=== PATIENT | female | born 1955 | race Caucasian/White ===

== ENCOUNTER 2024-07-26 15:29 | Emergency (ER) | payer MEDICARE, BC, SELFPAY ==
[2024-07-26 16:09] VITALS: BP 167/92; PULSE 81; RESP 20; TEMP 37.1; O2SAT 96; BMI 28.7
--- NOTE | 2024-07-26 16:21 | XR_ITS ---
Examination: PA lateral chest 2 views TECHNIQUE: Upright PA lateral chest 2 views Exam date and time: 19/01/2024 6 hours Comparison January 22, 2021 INDICATIONS: Chest pain coughing beginning 3 weeks ago. FINDINGS: Suspicious for early pneumonia left base Normal heart size The osseous structures are intact IMPRESSION: Suspicious for early left base pneumonia
--- NOTE | 2024-07-26 16:21 | EKG_ITS ---
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
--- NOTE | 2024-07-26 16:22 | PD.EDRME ---
Rapid Medical Screening Exam RME Arrival date/time: 07/26/24 15:29 69-year-old female with past medical history everyday smoker cardiac stent presents to the emergency department complaining of shortness of breath and cough has been ongoing for several days. Chief Complaint: Flu Like Symptoms Time Seen by Provider: 07/26/24 15:46 Vital signs: Vital Signs Temperature 98.8 F 07/26/24 16:09 Pulse Rate 81 07/26/24 16:09 Respiratory Rate 20 07/26/24 16:09 Blood Pressure 167/92 H 07/26/24 16:09 Pulse Oximetry (%) 96 07/26/24 16:09 Oxygen Delivery Method Room Air 07/26/24 16:09 Vital signs reviewed by provider: Yes
[2024-07-26 17:23] LABS: Basophils # (Auto) 0.1 Thou/mm3 (0.0-0.2); Basophils % (Auto) 1 % (0-2.5); Eosinophils # (Auto) 0.4 Thou/mm3 (0.0-0.5); Eosinophils % (Auto) 4 % (0-10); Hematocrit 42.6 % (36.0-46.0); Hemoglobin 14.4 g/dL (12.0-16.0); Immature Granulocytes % (Auto) 1 % (0-0); Immature Granulocytes Auto 0.07 Thou/mm3 (0.00-0.00); Lymphocytes # (Auto) 1.6 Thou/mm3 (1.0-4.8); Lymphocytes % (Auto) 17 % (10-50); Mean Corpuscular HGB Conc 33.8 g/dl (31.0-37.0); Mean Corpuscular Hemoglobin 30.6 pg (25.0-35.0); Mean Corpuscular Volume 90 fL (80-100); Monocytes # (Auto) 1.4 Thou/mm3 (0.0-0.8); Monocytes % (Auto) 15 % (0-12); Neutrophils % (Auto) 62 % (37-80); Nucleated Red Blood Cell % 0 /100 WBC (0); Platelet Count 283 Thou/mm3 (140-440); RDW Standard Deviation 40.9 fL (36.4-46.3); Red Blood Count 4.71 Miln/mm3 (4.00-5.20); White Blood Count 9.6 Thou/mm3 (3.6-11.0)
[2024-07-26 17:39] LABS: Alanine Aminotransferase 16 U/L (10-49); Albumin, Serum 4.8 gm/dL (3.4-4.8); Albumin/Globulin Ratio 1.7 (1.2-2.2); Alkaline Phosphatase 105 U/L (46-116); Anion Gap 9 (7-16); Aspartate Amino Transferase 30 U/L (0-34); BUN/Creatinine Ratio 9 Ratio (12-20); Bilirubin,Total 0.4 mg/dL (0.3-1.2); Blood Urea Nitrogen 12 mg/dL (9-23); Calcium 10.4 mg/dL (8.3-10.6); Calcium (Corrected) 10.4 mg/dL (8.5-10.1); Carbon Dioxide 27.6 mMol/L (20.0-31.0); Chloride 99 mMol/L (98-107); Creatinine (Component) 1.4 mg/dL (0.6-1.3); Estimated Creatinine Clearance 41.8 mL/min (>60); Globulin 2.8 gm/dL (2.3-3.5); Glucose 92 mg/dL (74-106); Osmolality,Calculated 271 (275-295); Potassium 3.7 mMol/L (3.4-5.1); Sodium 136 mMol/L (136-145); Total Protein 7.6 gm/dL (5.7-8.2); Troponin I < 0.020 ng/mL (0.0-0.045); eGFR 41 See Note
--- NOTE | 2024-07-26 19:00 | PD.EDURI ---
Upper Respiratory Inf. RME/HPI General Chief Complaint: Flu Like Symptoms Stated Complaint: can't quit coughing Time Seen by Provider: 07/26/24 15:46 Arrival date/time: 07/26/24 15:29 69 year old female with c/o of cough for 1 week. pt report was exposed to sick contact last week. pt report shortness of breath. SEVERITY: Symptoms are described as being severe with limitations on activities of daily living CONTEXT: The patient is unable to identify any inciting events. DURATION/TIMING: The symptoms started approximately 7 days ago and have been constant since and have been progressive getting worse. ASSOCIATED SYMPTOMS: The patient is unable to identify any other associated symptoms. MODIFYING FACTORS: The patient is unable to identify any alleviating or aggravating symptoms. PERTINENT ROS: no fevers, no pleuritic pain, no ripping or tearing sensations, denies any lower extremity edema and no unilateral swelling, no chest pain no nausea,vomiting, diarrhea, no dizziness/headache no rash no loc/syncope episode no abd/back pain no dsyuria,urgency,frequency REVIEW OF SYSTEMS: See History of Present Illness - with the exception of those mentioned in the history of present illness, all other systems reviewed and reported as negative GENERAL: In general the patient is awake, interactive, in an emergency department gurney. HEAD/EYES/EARS/NOSE/THROAT: normo-cephalic, atraumatic, mucus membranes are moist, anicteric, palpebral conjunctiva is pink, trachea is midline. CARDIOVASCULAR: regular rate and regular rhythm, no murmurs, heart sounds are not distant, strong pulses in all four extremities that are equal and symmetric bilateral upper and lower extremities, normal capillary refill. CHEST/PULMONARY: normal chest rise and fall, good air movement, + wheezes, + cough noted. normal inspiratory to expiratory ratios without evidence of respiratory distress. NECK: No midline/Paraspinal tenderness, no step off ROM/Strenght intact No Kernig and bruzinski sign. No trauma ABDOMEN: soft, not tender, no masses appreciated BACK: normal range of motion without pain. NEUROLOGICAL: cranio-facial features are symmetric, moves all four extremities equally without obvious limitations or weakness. EXTREMITY: no tenderness to palpation over the long bones or large joints of the bilateral upper and lower extremities, no joint swelling, no joint erythema, no signs of trauma, no unilateral leg swelling and no peripheral edema. SKIN: warm, dry, well-perfused, no jaundice, no rash, no telangiectasias or petechia. PSYCH: calm, cooperative, no evidence of psychosis or agitation RME / HPI RME / HPI Narrative: 07/26/24 15:29 69-year-old female with past medical history everyday smoker cardiac stent presents to the emergency department complaining of shortness of breath and cough has been ongoing for several days. Related Data Home Medications ?Medication ?Instructions ?Recorded ?Confirmed alprazolam 0.5 mg tablet 0.5 mg PO QDAY 10/25/20 10/25/20 celecoxib 200 mg capsule (Celebrex) 200 mg PO QDAY 10/25/20 10/25/20 citalopram 40 mg tablet (Celexa) 20 mg PO QDAY 10/25/20 10/25/20 isosorbide mononitrate 60 mg 60 mg PO QAM 10/25/20 10/25/20 tablet,extended release 24 hr lisinopril 20 mg tablet 20 mg PO QDAY 10/25/20 10/25/20 pravastatin 20 mg tablet 20 mg PO QDAY 10/25/20 10/25/20 pregabalin 200 mg capsule (Lyrica) 200 mg PO QDAY 10/25/20 10/25/20 trazodone 150 mg tablet 150 mg PO QDAY 10/25/20 10/25/20 Previous Rx's ?Medication ?Instructions ?Recorded diphenhydramine HCl 25 mg capsule 25 mg PO Q8H PRN allergic symptoms 03/08/21 (Benadryl) #30 caps azithromycin 500 mg tablet 500 mg PO QDAY 4 days #4 tabs 07/26/24 codeine 10 mg-guaifenesin 200 mg/5 5 ml PO Q6H PRN cough #120 mL 07/26/24 mL oral liquid doxycycline hyclate 100 mg capsule 100 mg PO BID #14 caps 07/26/24 Allergies Allergy/AdvReac Type Severity Reaction Status Date / Time Sulfa (Sulfonamide Allergy Intermediate Fever Verified 07/26/24 15:30 Antibiotics) levofloxacin Allergy Mild SWELLING, Verified 07/26/24 15:30 JOINT PAIN, STOMACH ON FIRE ciprofloxacin Allergy Unknown UNKNOWN Verified 07/26/24 15:30 REACTION Quinolones Allergy Unknown Fever Verified 07/26/24 15:30 Course Course Course Narrative: review labs, ekg, cx ,covid/flu Patient presenting with cough and fever.? VS were reviewed and showed wnl? ? Lung exam noted to have wheezes and cough? ?Obtained and reviewed CXR, which showed left side pna? ?At this time, it is felt that the most likely explanation for the patient's symptoms is pneumonia.? I also considered URI, bronchitis, pneumonia, pneumothorax, PE, but this appears less likely considering the data gathered thus far.? Patient was provided first dose of antibiotics while in the ED.? ?Supportive treatment options were discussed.? Patient to follow up with PCP closely.?? Plan:? Prescribed doxy, azithromycin, codeine Advised Pt on supportive measures, including smoking cessation and avoidance of second-hand smoke, OTC acetaminophen or ibuprofen for fever and body aches, advancement of fluids as tolerated, rest, and frequent hand-washing w/ soap and water. Instructed Pt to monitor for shaking chills or T>100.5degF, persistent cough >7-10d, hemoptysis, delirium or confusion, cyanosis, and respiratory distress.? Instructed Pt to f/up w/ PCP or ETC should Sx worsen or not improve.? Quality Measures none Orders Category Date Time Status Bedside COVID-19 Antigen Test NOW Care 07/26/24 16:21 Active Bedside Influenza A&B Antigen Test NOW Care 07/26/24 16:21 Completed EKG (ED ONLY) *Do not use* NOW Care 07/26/24 16:21 Completed EKG (ED Only) Stat Exams 07/26/24 16:21 Draft XR chest 2V Stat Exams 07/26/24 16:21 Completed CBC Stat Lab 07/26/24 16:37 Completed Comprehensive Metabolic Panel Stat Lab 07/26/24 16:37 Completed Troponin I Stat Lab 07/26/24 16:37 Completed ACETAMINOPHEN w/COD 300-30 [Tylenol w/Cod #3] Med 07/26/24 18:59 Discontinued 1 tab PO X1 ONE Albuterol/Ipratr Rt Selina [Duoneb Rt Selina] Med 07/26/24 19:08 Discontinued 3 ml INH X1 ONE Azithromycin Po [Zithromax PO] Med 07/26/24 19:07 Discontinued 500 mg PO X1 ONE Doxycycline [Vibramycin] Med 07/26/24 18:59 Discontinued 100 mg PO X1 ONE guaiFENesin SYRUP [Robitussin Syrup] Med 07/26/24 18:59 Discontinued 200 mg PO X1 ONE Vital Signs Vital signs: Vital Signs Temperature 98.8 F 07/26/24 16:09 Pulse Rate 81 07/26/24 16:09 Respiratory Rate 20 07/26/24 16:09 Blood Pressure 167/92 H 07/26/24 16:09 Pulse Oximetry (%) 96 07/26/24 16:09 Oxygen Delivery Method Room Air 07/26/24 16:09 Procedures -ED EKG Interpretation #1: Date of EK07/26/24 Rate: 76 Interpretation: Reviewed by me EKG Impression: Normal sinus rhythm, No acute ST-T changes, No ectopy, No ischemic changes and Normal QRS Upper Respiratory Infection Patient data External records reviewed:: None Clinical information provided by:: patient and family Social determinants that could affect healthcare access:: none Patient has the following chronic illnesses:: HTN, hdl How is presenting disease/condition affected by chronic disease/condition?: exacerbated by Evaluation data The following diagnostics were reviewed and interpreted by me:: lab results, radiology exam(s) and EKG tracing(s) Lab and/or radiology exams considered but not ordered:: none Interpretation Summary: cbc/cmp/trop wnl cxr: + pna ekg wnl covid/flu negative Medications / Prescriptions Medications or Prescriptions considered but not ordered:: none Medication administrations:: Medication Administration History Discontinued Medications Acetaminophen/Codeine Phosphate (Acetaminophen W/Cod 300-30 Tablet) 1 tab PO X1 ONE Stop: 07/26/24 19:00 Albuterol/Ipratropium (Albuterol/Ipratropium (Duoneb) Rt Selina 3 Ml Nebu) 3 ml INH X1 ONE Stop: 07/26/24 19:09 Azithromycin (Azithromycin 250 Mg Tablet) 500 mg PO X1 ONE Stop: 07/26/24 19:08 Doxycycline Hyclate (Doxycycline 100 Mg Tablet) 100 mg PO X1 ONE Stop: 07/26/24 19:00 Guaifenesin (Guaifenesin Syrup 200 Mg/10 Ml Udc) 200 mg PO X1 ONE; Protocol Stop: 07/26/24 19:00 as state above Consultations Consultation(s) initiated? (list below): No Diagnosis Upper Respiratory Differential Diagnosis: upper respiratory infection, viral infection, bronchitis, influenza and pharyngitis (pna mi/nstemi bronchitis ) Most likely diagnosis given after review of the tests above:: as stated in mdm pna Admission Indicated Admission indicated?: not indicated Admission Request Was there a request for admission?: No Disposition Plan Disposition Plan: Discharge Discharge Attestation Discharge Attestation: The patient and all family members were given an opportunity to ask questions and understood the discharge instructions. Discharge instructions specifically effects, indications for sooner follow up or return to the emergency department, and the expected course of current diagnosis. Patient condition: Stable Discharge Plan Plan Patient Disposition: HOME (Self Care) Health Concerns: Follow with PMD as directed Take tylenol or motrin as need Return to ED if sx worsen Prescriptions/Referrals Prescriptions/Med Rec: New doxycycline hyclate 100 mg capsule 100 mg PO BID Qty: 14 0RF codeine-guaifenesin 10-200 mg/5 mL liquid 5 ml PO Q6H PRN (Reason: cough) Qty: 120 0RF azithromycin 500 mg tablet 500 mg PO QDAY 4 Days Qty: 4 0RF No Action celecoxib [Celebrex] 200 mg Capsule 200 mg PO QDAY citalopram [Celexa] 40 mg Tablet 20 mg PO QDAY lisinopril 20 mg Tablet 20 mg PO QDAY isosorbide mononitrate 60 mg Tablet Extended Release 24 Hr 60 mg PO QAM alprazolam 0.5 mg Tablet 0.5 mg PO QDAY trazodone 150 mg Tablet 150 mg PO QDAY pravastatin 20 mg Tablet 20 mg PO QDAY pregabalin [Lyrica] 200 mg Capsule 200 mg PO QDAY diphenhydramine HCl [Benadryl] 25 mg capsule 25 mg PO Q8H PRN (Reason: allergic symptoms) Qty: 30 0RF Referrals: Irasema Caldera MD [Primary Care Provider] - In 1 week Problem List Clinical Impression: Pneumonia Patient/Caregiver Discharge Instructions Education Materials: ED Pneumonia (Adult) Print Language: Mongolian Stand Alone Forms: [facility] Award Info., Patient Portal Info Letter
[2024-07-26 19:03] VITALS: BP 176/96; PULSE 77; RESP 16; TEMP 36.8; O2SAT 97
[2024-07-26] MEDS: AZITHROMYCIN 250 MG TABLET 500 MG PO (19:24)
[2024-07-26] MEDS: ACETAMINOPHEN w/COD 300-30 TABLET 1 TAB PO (19:24)
[2024-07-26] MEDS: guaiFENesin SYRUP 200 MG/10 ML UDC PO (19:25)
[2024-07-26] MEDS: DOXYCYCLINE 100 MG TABLET PO (19:25)
[2024-07-26 19:36] VITALS: PULSE 71; RESP 16; O2SAT 100
[2024-07-26] MEDS: ALBUTEROL/IPRATROPIUM (Duoneb) RT SOL 3 ML NEBU INH (19:36)
== END 2024-07-26 19:51 | disposition home or self-care (01) ==
PROVIDERS: Emergency Provider Emergency Medicine; PCP Internal Medicine
DX: J18.9 Pneumonia, unspecified organism (principal); R94.31 Abnormal electrocardiogram [ECG] [EKG]; F17.290 Nicotine dependence, other tobacco product, uncomplicated; I10 Essential (primary) hypertension
CPT/HCPCS: 36415; 71046; 80053; 84484; 85025; 87400; 87811; 93005; 94640; 99283; A9270

== ENCOUNTER → 2024-08-11 | Outpatient (CLI) | payer MEDICARE, BC, SELFPAY ==
[2024-08-11 11:10] LABS: Collection Type, Urine Clean Catch
[2024-08-11 11:34] LABS: Basophils # (Auto) 0.1 Thou/mm3 (0.0-0.2); Basophils % (Auto) 2 % (0-2.5); Eosinophils # (Auto) 0.2 Thou/mm3 (0.0-0.5); Eosinophils % (Auto) 4 % (0-10); Hematocrit 41.2 % (36.0-46.0); Hemoglobin 14.1 g/dL (12.0-16.0); Immature Granulocytes % (Auto) 0 % (0-0); Immature Granulocytes Auto 0.02 Thou/mm3 (0.00-0.00); Lymphocytes # (Auto) 1.1 Thou/mm3 (1.0-4.8); Lymphocytes % (Auto) 19 % (10-50); Mean Corpuscular HGB Conc 34.2 g/dl (31.0-37.0); Mean Corpuscular Hemoglobin 31.1 pg (25.0-35.0); Mean Corpuscular Volume 91 fL (80-100); Monocytes # (Auto) 0.7 Thou/mm3 (0.0-0.8); Monocytes % (Auto) 11 % (0-12); Neutrophils # (Auto) 3.7 Thou/mm3 (1.8-7.7); Neutrophils % (Auto) 63 % (37-80); Nucleated Red Blood Cell % 0 /100 WBC (0); Platelet Count 218 Thou/mm3 (140-440); RDW Standard Deviation 41.1 fL (36.4-46.3); Red Blood Count 4.53 Miln/mm3 (4.00-5.20); White Blood Count 5.9 Thou/mm3 (3.6-11.0)
[2024-08-11 11:45] LABS: Glucose Estimated Average 105 mg/dL (80-131); Hemoglobin A1C 5.3 % Hgb (4.8-6.0)
[2024-08-11 11:51] LABS: Amorphous Crystals,Urine Present (Absent); Bilirubin,Urine Negative (Negative); Blood,Urine Negative (Negative); Clarity,Urine Clear (Clear/Hazy); Color,Urine Lt-Yellow (Lt Yel-Yel); Glucose, Urine Negative (Negative); Ketones,Urine Negative (Negative); Leukocyte Esterase,Urine Negative (Negative); Nitrite,Urine Negative (Negative); Protein,Urine Negative (Neg - Trace); RBC,Urine 5 /hpf (0-3); Specific Gravity,Urine 1.016 (1.001-1.035); Squamous Epithelial Cell,Urine 4 /hpf (0-5); Urobilinogen,Urine Negative mg/dL (0.0-1.0); WBC,Urine < 1 /hpf (0-5)
[2024-08-11 11:57] LABS: Vitamin B12 525 pg/mL (211-911); Vitamin D 25 Hydroxy Total 81.3 ng/mL (7.3-40.2)
[2024-08-11 12:11] LABS: Alanine Aminotransferase 16 U/L (10-49); Albumin, Serum 4.6 gm/dL (3.4-4.8); Albumin/Globulin Ratio 2.1 (1.2-2.2); Alkaline Phosphatase 94 U/L (46-116); Anion Gap 8 (7-16); Aspartate Amino Transferase 24 U/L (0-34); BUN/Creatinine Ratio 10 Ratio (12-20); Bilirubin,Total 0.4 mg/dL (0.3-1.2); Blood Urea Nitrogen 14 mg/dL (9-23); Calcium 10.3 mg/dL (8.3-10.6); Calcium (Corrected) 10.3 mg/dL (8.5-10.1); Carbon Dioxide 26.9 mMol/L (20.0-31.0); Cardiac Risk Estimate 2.3 RATIO (3.7-5.6); Chloride 103 mMol/L (98-107); Cholesterol 177 mg/dL (132-200); Creatinine (Component) 1.4 mg/dL (0.6-1.3); Globulin 2.2 gm/dL (2.3-3.5); Glucose 88 mg/dL (74-106); HDL Cholesterol 77 mg/dL (40-60); LDL Cholesterol,Calculated 74 mg/dL (0-130); Osmolality,Calculated 275 (275-295); Potassium 4.5 mMol/L (3.4-5.1); Sodium 138 mMol/L (136-145); Thyroid Stimulating Hormone 0.86 uIU/mL (0.55-4.78); Total Protein 6.8 gm/dL (5.7-8.2); Triglycerides 131 mg/dL (30-150); eGFR 41 See Note
== END | disposition home or self-care (01) ==
LOC: COPL 10:18
PROVIDERS: PCP Internal Medicine; Referring Provider Internal Medicine; Visit Provider Internal Medicine
DX: Z00.00 Encounter for general adult medical examination without abnormal findings (principal); I10 Essential (primary) hypertension; E78.5 Hyperlipidemia, unspecified; R73.09 Other abnormal glucose; D51.9 Vitamin B12 deficiency anemia, unspecified; E55.9 Vitamin D deficiency, unspecified
CPT/HCPCS: 36415; 80053; 80061; 81001; 82306; 82607; 83036; 84443; 84550; 85025

== ENCOUNTER → 2024-10-06 | Outpatient (CLI) | payer MEDICARE, BC, SELFPAY ==
--- NOTE | 2024-10-06 08:55 | XR_ITS ---
Examination: Lumbar spine 3 views TECHNIQUE: Standing AP lateral coned lateral lower lumbar spine 3 views Exam date and time: October 06, 2024 0922 hours Comparison June 12, 2017 INDICATIONS: Status post lumbar fusion September 23, 2024 FINDINGS: Lumbar transpedicular fusion L2-S1 with satisfactory alignment Prominent lumbar spondylosis Advanced degenerative disc disease above the fusion, L1-L2 IMPRESSION: Transpedicular lumbar fusion L2-S1 with satisfactory alignment
== END | disposition home or self-care (01) ==
LOC: CDIM 08:47
PROVIDERS: PCP Internal Medicine; Referring Provider Orthopaedic Surgery Orthopaedic Surgery of the Spine; Visit Provider Orthopaedic Surgery Orthopaedic Surgery of the Spine
DX: M43.26 Fusion of spine, lumbar region (principal); Z47.89 Encounter for other orthopedic aftercare
CPT/HCPCS: 72100

== ENCOUNTER → 2024-11-30 | Outpatient (CLI) | payer MEDICARE, BC, SELFPAY ==
--- NOTE | 2024-11-30 15:39 | XR_ITS ---
Examination: Lumbar spine, 5 views Technique: Lumbar spine AP, lateral, coned lateral lower lumbar spine, bilateral obliques 5 views Exam date and time: November 30, 2024 1556 hours Comparison October 06, 2024 INDICATIONS: Low back pain years, postop lumbar fusion FINDINGS: Stable alignment transpedicular lumbar fusion L2-S1 with anatomic alignment Advanced degenerative disc disease above the fusion site L1-L2 No lumbar fracture Moderate lumbar spondylosis IMPRESSION: Extensive lumbar stabilization with anatomic alignment Advanced degenerative disc disease L1-L2
== END | disposition home or self-care (01) ==
LOC: SDIM 15:28
PROVIDERS: PCP Internal Medicine; Referring Provider Orthopaedic Surgery Orthopaedic Surgery of the Spine; Visit Provider Orthopaedic Surgery Orthopaedic Surgery of the Spine
DX: M51.369 Other intervertebral disc degeneration, lumbar region without mention of lumbar back pain or lower extremity pain (principal); Z47.89 Encounter for other orthopedic aftercare
CPT/HCPCS: 72110

== ENCOUNTER → 2025-02-28 | Outpatient (CLI) | payer MEDICARE, BC, SELFPAY ==
[2025-02-28 09:17] LABS: Collection Type, Urine Clean Catch
[2025-02-28 09:50] LABS: Basophils # (Auto) 0.1 Thou/mm3 (0.0-0.2); Basophils % (Auto) 2 % (0-2.5); Eosinophils # (Auto) 0.3 Thou/mm3 (0.0-0.5); Eosinophils % (Auto) 5 % (0-10); Hematocrit 42.4 % (36.0-46.0); Hemoglobin 13.8 g/dL (12.0-16.0); Immature Granulocytes % (Auto) 0 % (0-0); Immature Granulocytes Auto 0.01 Thou/mm3 (0.00-0.00); Lymphocytes # (Auto) 1.2 Thou/mm3 (1.0-4.8); Lymphocytes % (Auto) 20 % (10-50); Mean Corpuscular HGB Conc 32.5 g/dl (31.0-37.0); Mean Corpuscular Hemoglobin 29.4 pg (25.0-35.0); Mean Corpuscular Volume 90 fL (80-100); Monocytes # (Auto) 0.7 Thou/mm3 (0.0-0.8); Monocytes % (Auto) 11 % (0-12); Neutrophils # (Auto) 3.6 Thou/mm3 (1.8-7.7); Neutrophils % (Auto) 61 % (37-80); Nucleated Red Blood Cell % 0 /100 WBC (0); Platelet Count 218 Thou/mm3 (140-440); RDW Standard Deviation 48.3 fL (36.4-46.3); Red Blood Count 4.69 Miln/mm3 (4.00-5.20); White Blood Count 5.9 Thou/mm3 (3.6-11.0)
[2025-02-28 09:56] LABS: Bacteria,Urine 1+; Bilirubin,Urine Negative (Negative); Blood,Urine Negative (Negative); Clarity,Urine Clear (Clear/Hazy); Color,Urine Lt-Yellow (Lt Yel-Yel); Glucose, Urine Negative (Negative); Ketones,Urine Negative (Negative); Leukocyte Esterase,Urine Negative (Negative); Nitrite,Urine Negative (Negative); PH,Urine 6.5 (5.0-7.0); Protein,Urine Negative (Neg - Trace); RBC,Urine 2 /hpf (0-3); Specific Gravity,Urine 1.017 (1.001-1.035); Squamous Epithelial Cell,Urine 8 /hpf (0-5); Urobilinogen,Urine Negative mg/dL (0.0-1.0); WBC,Urine 2 /hpf (0-5)
[2025-02-28 09:56] LABS: Parathyroid Hormone Intact 57.5 pg/ml (18.5-88.0)
[2025-02-28 09:59] LABS: Alanine Aminotransferase 15 U/L (10-49); Albumin, Serum 4.3 gm/dL (3.4-4.8); Albumin/Globulin Ratio 1.7 (1.2-2.2); Alkaline Phosphatase 95 U/L (46-116); Anion Gap 4 (7-16); Aspartate Amino Transferase 25 U/L (0-34); BUN/Creatinine Ratio 11 Ratio (12-20); Bilirubin,Total 0.3 mg/dL (0.3-1.2); Blood Urea Nitrogen 16 mg/dL (9-23); Calcium 9.8 mg/dL (8.3-10.6); Calcium (Corrected) 9.8 mg/dL (8.5-10.1); Carbon Dioxide 29.8 mMol/L (20.0-31.0); Cardiac Risk Estimate 2.6 RATIO (3.7-5.6); Chloride 107 mMol/L (98-107); Cholesterol 177 mg/dL (132-200); Creatinine (Component) 1.4 mg/dL (0.6-1.3); Globulin 2.6 gm/dL (2.3-3.5); Glucose 95 mg/dL (74-106); HDL Cholesterol 67 mg/dL (40-60); LDL Cholesterol,Calculated 81 mg/dL (0-130); Osmolality,Calculated 282 (275-295); Potassium 4.4 mMol/L (3.4-5.1); Sodium 141 mMol/L (136-145); Total Protein 6.9 gm/dL (5.7-8.2); Triglycerides 146 mg/dL (30-150); eGFR 41 See Note
[2025-02-28 10:05] LABS: Creatinine MALB Rnd Ur 116 mg/dL (30-125); Microalbumin, Random Urine < 3 mg/L (0-300)
== END | disposition home or self-care (01) ==
LOC: COPL 08:21
PROVIDERS: PCP Internal Medicine; Referring Provider Internal Medicine; Visit Provider Internal Medicine
DX: I12.9 Hypertensive chronic kidney disease with stage 1 through stage 4 chronic kidney disease, or unspecified chronic kidney disease (principal); N18.30 Chronic kidney disease, stage 3 unspecified; E78.5 Hyperlipidemia, unspecified
CPT/HCPCS: 36415; 80053; 80061; 81001; 82043; 82570; 83970; 85025

== ENCOUNTER → 2025-04-18 | Outpatient (CLI) | payer MEDICARE, BC, SELFPAY ==
--- NOTE | 2025-04-18 15:23 | XR_ITS ---
Examination: Lumbar spine, 5 views Technique: Lumbar spine AP, lateral, coned lateral lower lumbar spine, bilateral obliques 5 views Exam date and time: April 18, 2025 1536 hours, comparison November 30, 2024 INDICATIONS: Back surgery September 2024 with persistent postop back pain. FINDINGS: Lumbar levoscoliosis 10 degrees Stable alignment transpedicular lumbar stabilization L2-S1 with diffuse advanced lumbar disc narrowing No lumbar fracture Prominent lumbar spondylosis IMPRESSION: Stable alignment transpedicular lumbar stabilization L3-S1 with diffuse advanced lumbar degenerative disc disease
== END | disposition home or self-care (01) ==
PROVIDERS: PCP Internal Medicine; Referring Provider Orthopaedic Surgery Orthopaedic Surgery of the Spine; Visit Provider Orthopaedic Surgery Orthopaedic Surgery of the Spine
DX: M51.360 Other intervertebral disc degeneration, lumbar region with discogenic back pain only (principal)
CPT/HCPCS: 72110

== ENCOUNTER → 2025-07-07 | Outpatient (CLI) | payer MEDICARE, BC, SELFPAY ==
[2025-07-07 08:49] LABS: Collection Type, Urine Clean Catch
[2025-07-07 09:09] LABS: Basophils # (Auto) 0.1 Thou/mm3 (0.0-0.2); Basophils % (Auto) 1 % (0-2.5); Eosinophils # (Auto) 0.2 Thou/mm3 (0.0-0.5); Eosinophils % (Auto) 4 % (0-10); Hematocrit 41.2 % (36.0-46.0); Hemoglobin 14.1 g/dL (12.0-16.0); Immature Granulocytes Auto 0.02 Thou/mm3 (0.00-0.00); Lymphocytes # (Auto) 1.0 Thou/mm3 (1.0-4.8); Lymphocytes % (Auto) 19 % (10-50); Mean Corpuscular HGB Conc 34.2 g/dl (31.0-37.0); Mean Corpuscular Hemoglobin 30.5 pg (25.0-35.0); Mean Corpuscular Volume 89 fL (80-100); Monocytes # (Auto) 0.7 Thou/mm3 (0.0-0.8); Monocytes % (Auto) 13 % (0-12); Neutrophils # (Auto) 3.3 Thou/mm3 (1.8-7.7); Neutrophils % (Auto) 63 % (37-80); Nucleated Red Blood Cell # 0.00 Thou/mm3 (0.00-0.00); Nucleated Red Blood Cell % 0 /100 WBC (0); Platelet Count 217 Thou/mm3 (140-440); RDW Standard Deviation 44.1 fL (36.4-46.3); Red Blood Count 4.62 Miln/mm3 (4.00-5.20); White Blood Count 5.2 Thou/mm3 (3.6-11.0)
[2025-07-07 09:15] LABS: Bacteria,Urine Rare; Bilirubin,Urine Negative (Negative); Blood,Urine Negative (Negative); Clarity,Urine Clear (Clear/Hazy); Color,Urine Yellow (Lt Yel-Yel); Glucose, Urine Negative (Negative); Ketones,Urine Trace (Negative); Leukocyte Esterase,Urine Negative (Negative); Nitrite,Urine Negative (Negative); PH,Urine 6.0 (5.0-7.0); Protein,Urine Negative (Neg - Trace); RBC,Urine 8 /hpf (0-3); Specific Gravity,Urine 1.011 (1.001-1.035); Squamous Epithelial Cell,Urine 1 /hpf (0-5); Urobilinogen,Urine Negative mg/dL (0.0-1.0); WBC,Urine 2 /hpf (0-5)
[2025-07-07 09:28] LABS: Parathyroid Hormone Intact 75.0 pg/ml (18.5-88.0)
[2025-07-07 09:29] LABS: Alanine Aminotransferase 11 U/L (10-49); Albumin, Serum 4.6 gm/dL (3.4-4.8); Albumin/Globulin Ratio 2.2 (1.2-2.2); Alkaline Phosphatase 92 U/L (46-116); Anion Gap 7 (7-16); Aspartate Amino Transferase 22 U/L (0-34); BUN/Creatinine Ratio 9 Ratio (12-20); Bilirubin,Total 0.5 mg/dL (0.3-1.2); Blood Urea Nitrogen 10 mg/dL (9-23); Calcium 9.7 mg/dL (8.3-10.6); Calcium (Corrected) 9.7 mg/dL (8.5-10.1); Carbon Dioxide 25.5 mMol/L (20.0-31.0); Cardiac Risk Estimate 2.4 RATIO (3.7-5.6); Chloride 105 mMol/L (98-107); Cholesterol 148 mg/dL (132-200); Creatinine (Component) 1.1 mg/dL (0.6-1.3); Globulin 2.1 gm/dL (2.3-3.5); Glucose 88 mg/dL (74-106); HDL Cholesterol 62 mg/dL (40-60); LDL Cholesterol,Calculated 66 mg/dL (0-130); Osmolality,Calculated 271 (275-295); Potassium 4.0 mMol/L (3.4-5.1); Sodium 137 mMol/L (136-145); Thyroid Stimulating Hormone 1.25 uIU/mL (0.55-4.78); Total Protein 6.7 gm/dL (5.7-8.2); Triglycerides 98 mg/dL (30-150); eGFR 55 See Note
[2025-07-07 09:31] LABS: Creatinine MALB Rnd Ur 84 mg/dL (30-125); Microalbumin Creat Ratio 8 mg/gCrea (<30); Microalbumin, Random Urine 7 mg/L (0-300)
[2025-07-07 09:32] LABS: Follicle Stimulating Hormone 86.61 mIU/mL (See Note)
[2025-07-14 06:39] LABS: Estrogen, Total, Serum* 87 pg/mL; Luteinizing Hormone* 20.2 mIU/mL; Progesterone,LC/MS* <0.1 ng/mL
== END | disposition home or self-care (01) ==
LOC: COPL 08:06
PROVIDERS: PCP Internal Medicine; Referring Provider Internal Medicine; Visit Provider Internal Medicine
DX: I12.9 Hypertensive chronic kidney disease with stage 1 through stage 4 chronic kidney disease, or unspecified chronic kidney disease (principal); N18.30 Chronic kidney disease, stage 3 unspecified; E78.5 Hyperlipidemia, unspecified
CPT/HCPCS: 36415; 80053; 80061; 81001; 82043; 82570; 82672; 83001; 83002; 83970; 84144; 84443; 85025

== ENCOUNTER 2025-07-09 16:17 | Emergency (ER) | payer MEDICARE, BC, SELFPAY ==
--- NOTE | 2025-07-09 16:53 | PD.EDFALL ---
ED Fall Injury RME/HPI General Chief Complaint: Fall Stated Complaint: FALL Time Seen by Provider: 07/09/25 16:25 Arrival date/time: 07/09/25 16:17 70-year-old female patient came in for evaluation regarding ground-level fall. Patient was walking, stepped on a rock and fell hitting it forehead to the ground first, patient also complained of right shoulder pain described as dull ache, severity moderate also complained of right forearm pain with skin tear. Also complained of left knee pain with abrasion. Able to ambulate. Patient told me that she had bilateral hip replacement, she denies any chest pain back pain hip pain or abdominal pain. Her tetanus vaccination is up-to-date. Related Data Home Medications ?Medication ?Instructions ?Recorded ?Confirmed alprazolam 0.5 mg tablet 0.5 mg PO QDAY 10/25/20 10/25/20 celecoxib 200 mg capsule (Celebrex) 200 mg PO QDAY 10/25/20 10/25/20 citalopram 40 mg tablet (Celexa) 20 mg PO QDAY 10/25/20 10/25/20 isosorbide mononitrate 60 mg 60 mg PO QAM 10/25/20 10/25/20 tablet,extended release 24 hr lisinopril 20 mg tablet 20 mg PO QDAY 10/25/20 10/25/20 pravastatin 20 mg tablet 20 mg PO QDAY 10/25/20 10/25/20 pregabalin 200 mg capsule (Lyrica) 200 mg PO QDAY 10/25/20 10/25/20 trazodone 150 mg tablet 150 mg PO QDAY 10/25/20 10/25/20 Previous Rx's ?Medication ?Instructions ?Recorded diphenhydramine HCl 25 mg capsule 25 mg PO Q8H PRN allergic symptoms 03/08/21 (Benadryl) #30 caps codeine 10 mg-guaifenesin 200 mg/5 5 ml PO Q6H PRN cough #120 mL 07/26/24 mL oral liquid doxycycline hyclate 100 mg capsule 100 mg PO BID #14 caps 07/26/24 Allergies Allergy/AdvReac Type Severity Reaction Status Date / Time Sulfa (Sulfonamide Allergy Intermediate Fever Verified 07/26/24 15:30 Antibiotics) levofloxacin Allergy Mild SWELLING, Verified 07/26/24 15:30 JOINT PAIN, STOMACH ON FIRE ciprofloxacin Allergy Unknown UNKNOWN Verified 07/26/24 15:30 REACTION Quinolones Allergy Unknown Fever Verified 07/26/24 15:30 Review of Systems Review of Systems Narrative Review of Systems: Review of system reviewed and within normal limits except mentioned in HPI ED Exam Narrative Physical exam: VITAL SIGNS: Reviewed. GENERAL APPEARANCE: Alert and interactive, follows commands, no acute distress, HEAD AND FACE: Non-traumatic. ENT: PERRL, pink conjunctivitis, eyelid no trauma, Mucous membrane moist. NECK: Supple, nontender, no nuchal rigidity. CHEST: No tenderness, no crepitus, no paradoxical movement, no retractions. LUNGS: Clear, well ventilated, symmetric, no rales, no wheezing, no ronchi, no stridor, good breath sounds bilaterally. HEART: Regular rate, regular rhythm, no murmur, no gallops. ABDOMEN: Soft, positive bowel sounds, nondistended, no guarding, nontender, no rebound, no masses, RECTAL: Deferred. GENITAL: Deferred. NEUROLOGICAL: Gross motor function intact sensory function intact, Appropriate for age. MUSCULOSKELETAL: low back nontender, full range of motion. EXTREMITIES: Right arm tenderness, right forearm tenderness, skin tear noted on the right forearm, abrasion noted to the left knee, limitation range of motion. SKIN: Color pink, dry, no rash, no lacerations, no abrasions, no contusions. LYMPHATICS: Deferred. Course Quality Measures none Orders Category Date Time Status CT cervical spine wo con Stat Exams 07/09/25 17:[address] head/brain wo con Stat Exams 07/09/25 17:00 Completed XR forearm RT 2V Stat Exams 07/09/25 17:00 Completed XR humerus RT min 2V Stat Exams 07/09/25 17:00 Completed XR knee limited LT 2V Stat Exams 07/09/25 17:00 Completed HYDROcodone/APAP 10/325 [Lamar 10/325] Med 07/09/25 17:00 Discontinued 1 tab PO X1 ONE Vital Signs Vital signs: Vital Signs Temperature 98.1 F 07/09/25 16:54 Pulse Rate 67 07/09/25 16:54 Respiratory Rate 20 07/09/25 16:54 Blood Pressure 157/92 H 07/09/25 16:54 Pulse Oximetry (%) 95 07/09/25 16:54 Oxygen Delivery Method Room Air 07/09/25 16:54 Fall [facility] Narrative [facility] Narrative:: 70-year-old female patient came in for evaluation regarding ground-level fall. Patient was walking, stepped on a rock and fell hitting it forehead to the ground first, patient also complained of right shoulder pain described as dull ache, severity moderate also complained of right forearm pain with skin tear. Also complained of left knee pain with abrasion. Able to ambulate. Patient told me that she had bilateral hip replacement, she denies any chest pain back pain hip pain or abdominal pain. Her tetanus vaccination is up-to-date. CT scan of the head, CT scan of the cervical spine, x-ray of the humerus, forearm, knee, all came back unremarkable. Results discussed with the family. Wound cleansed with NS, Steri-Strip applied, and sterile dressing applied. Patient tolerated pressure well stable for charged home Patient data External records reviewed:: None Clinical information provided by:: patient Social determinants that could affect healthcare access:: none Patient has the following chronic illnesses:: Hypertension How is presenting disease/condition affected by chronic disease/condition?: uneffected by Evaluation data The following diagnostics were reviewed and interpreted by me:: radiology exam(s) Lab and/or radiology exams considered but not ordered:: None Interpretation Summary: See results [facility] Medications / Prescriptions Medications or Prescriptions considered but not ordered:: None Medication administrations:: Medication Administration History Discontinued Medications Hydrocodone Bitart/Acetaminophen (Hydrocodone/Apap 10/325 Tab) 1 tab PO X1 ONE Stop: 07/09/25 17:01 Last Admin: 07/09/25 17:44 Dose: 1 tab Documented By: MYKEL a[employer]checo Consultations Consultation(s) initiated? (list below): No Diagnosis Fall Differential Diagnosis: concussion without loss of consciousness and other (Skin tear, contusion, status post fall) Most likely diagnosis given after review of the tests above:: Skin tear, contusion, status post fall Admission Indicated Admission indicated?: not indicated Admission Request Was there a request for admission?: No Disposition Plan Disposition Plan: Discharge Discharge Attestation Discharge Attestation: The patient and all family members were given an opportunity to ask questions and understood the discharge instructions. Discharge instructions specifically effects, indications for sooner follow up or return to the emergency department, and the expected course of current diagnosis. Patient condition: Stable Discharge Plan Plan Patient Disposition: HOME (Self Care) Discharge Disposition comment: stable Prescriptions/Referrals Prescriptions/Med Rec: No Action celecoxib [Celebrex] 200 mg Capsule 200 mg PO QDAY citalopram [Celexa] 40 mg Tablet 20 mg PO QDAY lisinopril 20 mg Tablet 20 mg PO QDAY isosorbide mononitrate 60 mg Tablet Extended Release 24 Hr 60 mg PO QAM alprazolam 0.5 mg Tablet 0.5 mg PO QDAY trazodone 150 mg Tablet 150 mg PO QDAY pravastatin 20 mg Tablet 20 mg PO QDAY pregabalin [Lyrica] 200 mg Capsule 200 mg PO QDAY diphenhydramine HCl [Benadryl] 25 mg capsule 25 mg PO Q8H PRN (Reason: allergic symptoms) Qty: 30 0RF doxycycline hyclate 100 mg capsule 100 mg PO BID Qty: 14 0RF codeine-guaifenesin 10-200 mg/5 mL liquid 5 ml PO Q6H PRN (Reason: cough) Qty: 120 0RF Referrals: Irasema Caldera MD [Primary Care Provider, Nephrology] - In 1 week Problem List Clinical Impression: Skin tear, Contusion, Fall Patient/Caregiver Discharge Instructions Discharge Activity: activity as tolerated Education Materials: Exercises to Prevent Falls Additional Instructions: Thank you for the opportunity for serving you today. You are stable for discharged . You are advised to: Follow-up with your PCP in 1 to 2 days Return to ED for worsening of symptoms Increase oral fluids Take [id number] Tylenol or Motrin as needed for pain Do not remove your sterile strip at all follow-ups on its own, try not to get it wet also for the next 7 days all your imaging today including the CT scan of the head and neck, x-ray of the forearm humerus knee all came back normal Print Language: Libyan Stand Alone Forms: [facility] Award Info., Patient Portal Info Letter
[2025-07-09 16:54] VITALS: BP 157/92; PULSE 67; RESP 20; TEMP 36.7; O2SAT 95
--- NOTE | 2025-07-09 17:00 | XR_ITS ---
Examination: CT cervical spine without contrast 2-D sagittal reconstructions 2-D coronal reconstructions 3-D reconstructions. Exam date and time: July 06, 2025, 0520 hours INDICATIONS: Ground-level fall today with injury to the neck, neck pain CTDI:vol (mGy) 15.9 DLP: (mGycm) 316 Technique: Multiple 2 mm axial sections of the cervical spine have been obtained. The coronal and sagittal reconstructions have been obtained. 3-D reconstructions have been obtained. Low dose protocols were performed. One or more of the following dose reduction techniques were used; automated exposure control, adjustment of the mA and/or KV according to patient size, use of iterative reconstruction technique. Findings: Axial sections demonstrate intact base of the skull. C1 exhibit satisfactory relationship to the odontoid. No acute cervical vertebral body fracture seen. Alignment posterior spinous processes satisfactory. Impression: No acute cervical fracture.
--- NOTE | 2025-07-09 17:00 | XR_ITS ---
EXAMINATION:: Right humerus 2 views TECHNIQUE: AP lateral right humerus 2 views Date and time: July 09, 2025, 1724 hours INDICATIONS: Ground-level fall today with injury to the arm, arm pain. FINDINGS: Advanced osteoarthritis glenohumeral joint Humerus appears intact IMPRESSION: No acute humerus fracture
--- NOTE | 2025-07-09 17:00 | XR_ITS ---
EXAMINATION: Left knee 2 views TECHNIQUE: AP lateral left knee 2 views Date and time: July 09, 2025, 1730 hours INDICATIONS: Ground-level fall today with injury to the knee, knee pain. FINDINGS: Significant tricompartment osteoarthritis. No fracture or dislocation IMPRESSION: No fracture or dislocation
--- NOTE | 2025-07-09 17:00 | XR_ITS ---
Examination: CT brain head without contrast. 2-D sagittal coronal reconstructions Date and time of exam: July 09, 2025, 1716 hours INDICATIONS: Ground-level fall today with centrally head, head pain CTDI: vol (mGy): 51.2 DLP: (mGycm): 1011 Technique: Multiple CT axial sections of the brain have been obtained, 5 mm slice thickness. Contrast has not been administered. 2-D sagittal, coronal reconstructions have been obtained Low dose protocols were performed. One or more of the following dose reduction techniques were used; automated exposure control, adjustment of the mA and/or KV according to patient size, use of iterative reconstruction technique. Findings: No significant ventricular enlargement. Intra-axial or extra-axial hemorrhage density is not seen. No mass effect or midline shift Basal cisterns are not remarkable. Fourth ventricle is midline. Cranial vault intact. Impression: Negative for acute hemorrhage, mass effect or midline shift
--- NOTE | 2025-07-09 17:00 | XR_ITS ---
EXAMINATION examination::: Right forearm 2 views TECHNIQUE: AP lateral right forearm 2 views Date and time: July 09, 2025, 1732 hours INDICATIONS: Ground-level fall today with injury to the forearm, forearm pain. FINDINGS: Moderate osteopenia No definite acute fracture No foreign body IMPRESSION: No acute fracture
--- NOTE | 2025-07-09 18:31 | PRELIM_ITS ---
CT scan of the head without intravenous contrast (axial sections with sagittal and coronal reformats) July 09, 2025 1716 hours Clinical History: fall No prior study is available for comparison. Findings: There is no evidence of intracranial hemorrhage, mass effect or midline shift. There are periventricular white matter hypodensities, compatible with chronic small vessel ischemia. There is mild volume loss. There is atheromatous calcification of the intracranial arteries. The calvarium is intact. The mastoid air cells and the visualized paranasal sinuses are clear. Impression: No evidence of intracranial hemorrhage, midline shift or calvarial fracture. Periventricular chronic small vessel ischemia and volume loss. Report Electronically Signed By: Evelyn Patrick 07/09/2025 6:30:30 PM [EST]
--- NOTE | 2025-07-09 18:32 | PRELIM_ITS ---
CT scan of the cervical spine without intravenous contrast (axial sections with sagittal and coronal reformats) July 09, 2025 1716 hours Clinical History: fall No prior study is available for comparison. Findings: The bones are osteopenic. There is no fracture or traumatic subluxation. There are multilevel degenerative changes in the form of marginal osteophytes, decreased disc height, uncinate process, and facet arthrosis, most prominent at the C5-C6 and C6-C7 levels causing mild spinal canal and bilateral neural foraminal narrowing. The prevertebral soft tissues are unremarkable. Impression: No evidence of fracture or traumatic subluxation. Degenerative changes as described above. Report Electronically Signed By: Evelyn Patrick 07/09/2025 6:31:59 PM [EST]
--- NOTE | 2025-07-09 19:50 | PRELIM_ITS ---
Radiographs of the left knee joint (2 views). July 09, 2025 at 1720 hours. Clinical History: Knee pain. Comparison: No prior study is available for comparison. Findings: The bones are osteopenic. There is no radiographic evidence of acute fracture or dislocation. The tibiofemoral and patellofemoral knee joint spaces are moderately decreased and associated with small periarticular osteophytes and subchondral sclerosis. There is no significant joint effusion. Impression: Moderate osteoarthritis of the knee joint. Report Electronically Signed By: Jerson Bustos 07/09/2025 7:50:16 PM [EST]
--- NOTE | 2025-07-09 19:54 | PRELIM_ITS ---
Radiographs of the right forearm (2 views). July 09, 2025 at 1720 hours. Clinical history: Forearm pain. Comparison: No prior study is available for comparison. Findings: There is no evidence of fracture or dislocation. Mild degenerative changes are noted at the elbow joint in the form of decreased joint space, periarticular osteophytes and subchondral sclerosis. The other visualized bones and joints are intact. Impression: No evidence of fracture or dislocation. Degenerative changes as described above. Report Electronically Signed By: Jerson Bustos 07/09/2025 7:53:43 PM [EST]
--- NOTE | 2025-07-09 19:54 | PRELIM_ITS ---
Radiographs of the right humerus (2 views). July 09, 2025 at 1720 hours. Clinical history: Pain. Comparison: No prior study is available for comparison. Findings: The bones are osteopenic. There is no radiographic evidence of acute fracture or dislocation. There is a chronic deformity at the humeral head. Moderate degenerative changes are noted at the shoulder joint in the form of decreased joint space, periarticular osteophytes and subchondral sclerosis. The other visualized bones and joints are intact. Impression: No radiographic evidence of acute fracture or dislocation. Degenerative changes as described above. Report Electronically Signed By: Jerson Bustos 07/09/2025 7:54:02 PM [EST]
== END 2025-07-09 20:41 | disposition home or self-care (01) ==
PROVIDERS: Emergency Provider Emergency Medicine; PCP Internal Medicine
DX: M79.631 Pain in right forearm (principal); M25.511 Pain in right shoulder; W01.198A Fall on same level from slipping, tripping and stumbling with subsequent striking against other object, initial encounter; Z96.643 Presence of artificial hip joint, bilateral
CPT/HCPCS: 70450; 72125; 73060; 73090; 73560; 99283; A9270

== ENCOUNTER 2025-08-20 21:03 | Observation (INO) | payer MEDICARE, BC, SELFPAY ==
[2025-08-20 21:05] VITALS: BP 139/78; PULSE 69; PULSE 73; RESP 26; TEMP 36.6; O2SAT 95; O2SAT 99
--- NOTE | 2025-08-20 21:08 | PD.ASTHM ---
ED Asthma RME/HPI General Chief Complaint: Shortness of Breath/Dyspnea Stated Complaint: SHORTNESS OF BREATHE Time Seen by Provider: 08/20/25 21:08 Arrival date/time: 08/20/25 21:03 RME / HPI RME / HPI Narrative: DR. ONEILL MAIN ED EVALUATION: 70 y/o female with Hx of Asthma and HTN BIBA from home presents to ED c/o progressively worsening shortness of breath x 5 days, worse today. Also reports chest pain, R > L, and worse with inspiration. Per EMS, patient had BL wheezing with O2 saturation of 94%-95% and administered Albuterol treatment en route. Breathing has become more labored since arrival to ED. Patient is currently on Prednisone and Amoxicillin. Patient unaware if she has ever been diagnosed with PNA, but states that her asthma church never been this bad. Related Data Home Medications ?Medication ?Instructions ?Recorded ?Confirmed alprazolam 0.5 mg tablet 0.5 mg PO QDAY 10/25/20 10/25/20 celecoxib 200 mg capsule (Celebrex) 200 mg PO QDAY 10/25/20 10/25/20 citalopram 40 mg tablet (Celexa) 20 mg PO QDAY 10/25/20 10/25/20 isosorbide mononitrate 60 mg 60 mg PO QAM 10/25/20 10/25/20 tablet,extended release 24 hr lisinopril 20 mg tablet 20 mg PO QDAY 10/25/20 10/25/20 pravastatin 20 mg tablet 20 mg PO QDAY 10/25/20 10/25/20 pregabalin 200 mg capsule (Lyrica) 200 mg PO QDAY 10/25/20 10/25/20 trazodone 150 mg tablet 150 mg PO QDAY 10/25/20 10/25/20 Previous Rx's ?Medication ?Instructions ?Recorded diphenhydramine HCl 25 mg capsule 25 mg PO Q8H PRN allergic symptoms 03/08/21 (Benadryl) #30 caps codeine 10 mg-guaifenesin 200 mg/5 5 ml PO Q6H PRN cough #120 mL 07/26/24 mL oral liquid doxycycline hyclate 100 mg capsule 100 mg PO BID #14 caps 07/26/24 Allergies Allergy/AdvReac Type Severity Reaction Status Date / Time Sulfa (Sulfonamide Allergy Intermediate Fever Verified 07/26/24 15:30 Antibiotics) levofloxacin Allergy Mild SWELLING, Verified 07/26/24 15:30 JOINT PAIN, STOMACH ON FIRE ciprofloxacin Allergy Unknown UNKNOWN Verified 07/26/24 15:30 REACTION Quinolones Allergy Unknown Fever Verified 07/26/24 15:30 Review of Systems Review of Systems Systems Reviewed: All systems reviewed, normal except as documented Past Medical History Past Medical History CARDIAC: Positive Cardiac Disorders, Hypertension and Hypotension RESPIRATORY: Positive Asthma MUSCULOSKELETAL: Positive Osteoporosis PSYCHO/SOCIAL: Positive Depression and Anxiety OTHER HISTORY: Positive Falls Surgical History SURGICAL: Positive Coronary Stent ED Exam Narrative Physical exam: Generally patient is dyspneic and tachypneic, lungs show wheezes in all lung [place] with fair air exchange without obvious crackles but rhonchi present, heart tachycardic rate with regular rhythm extremities show no edema abdomen is soft nondistended nontender with some accessory muscles of respiratory use skin is cool pale and dry neurologic exam no focal motor deficit [place] Coma Scale is 15 Course Quality Measures none Asthma MDM Narrative MDM Narrative:: Scribe Attestation: Bryanna Cheney am scribing for and in the presence of Dr. Oneill. Provider Notation: Although this document has been carefully reviewed, there may still be some phonetic and other typographical errors. These errors are purely grammatical due to imperfections in the software program and should not be construed in any way to compromise the substance of the patient's medical care during this visit. Upon arrival the patient is wheezing in all lung [place] with fair air exchange. Patient was given albuterol 10 mg, Atrovent 1 mg, Solu-Medrol 125 mg IV, mag sulfate 2 g IV. COVID flu and RSV tested all negative. Chest x-ray showed left-sided pneumonia. Blood culture was obtained. Lactic acid level was obtained but pending. Patient received Rocephin 1 g IV and azithromycin 500 mg IV. Patient has not been hypotensive. EKG showed normal sinus rhythm at a rate of 78 without ischemic change or ectopy. Patient denied smoking cigarettes. Case was discussed with the hospitalist and the patient will be admitted to the hospital for further treatment and evaluation. Patient data External records reviewed:: [facility] previous records (Reviewed prior ED records from 07/09/25. Patient was seen for Contusion.) and EMS form Clinical information provided by:: patient and EMS Social determinants that could affect healthcare access:: none Patient has the following chronic illnesses:: None How is presenting disease/condition affected by chronic disease/condition?: exacerbated by Evaluation data The following diagnostics were reviewed and interpreted by me:: lab results, radiology exam(s) and EKG tracing(s) Lab and/or radiology exams considered but not ordered:: None Interpretation Summary: RADIOLOGY Chest X-Ray: FINDINGS: Fairly diffuse pneumonia in the left lung Right lung clear Normal heart size Severe osteopenia IMPRESSION: Fairly diffuse pneumonia in the left lung Medications / Prescriptions Medications or Prescriptions considered but not ordered:: None Medication administrations:: See above if any. Consultations Consultation(s) initiated? (list below): Yes Consultation #1 (Physician, Specialty, Details): Discussed with Dr. Noble for admission. Reviewed the patient?s HPI, PMHx, lab and/or radiology results. Discussed treatment plan. Will consult an admission to the hospitalist. Time: 22:25 Diagnosis Differential diagnosis asthma: Acute exacerbation, Status asthmaticus, Acute asthmatic bronchitis, Pneumonia, Pulmonary edema systolic, Pulmonary edema dystolic and Pneumothorax Most likely diagnosis given after review of the tests above:: None Admission Indicated Admission indicated?: indicated Admission Request Was there a request for admission?: Yes Admission Attestation Admission request attestation: Discussed case with [] from Hospitalist service regarding admission. Discussed patients ED course, exam findings, labs, and radiology results. The Hospitalist [agrees,declines] to accept the patient for admission. Disposition Plan Disposition Plan: Admit Critical Care Time Critical Care Time Critical Care Time: Yes Total Critical Care Time (min.): 35 Attestation: Excluding other billable procedures Discharge Plan Plan Patient Disposition: Admit Acute Care w/in Hospital Prescriptions/Referrals Prescriptions/Med Rec: No Action celecoxib [Celebrex] 200 mg Capsule 200 mg PO QDAY citalopram [Celexa] 40 mg Tablet 20 mg PO QDAY lisinopril 20 mg Tablet 20 mg PO QDAY isosorbide mononitrate 60 mg Tablet Extended Release 24 Hr 60 mg PO QAM alprazolam 0.5 mg Tablet 0.5 mg PO QDAY trazodone 150 mg Tablet 150 mg PO QDAY pravastatin 20 mg Tablet 20 mg PO QDAY pregabalin [Lyrica] 200 mg Capsule 200 mg PO QDAY diphenhydramine HCl [Benadryl] 25 mg capsule 25 mg PO Q8H PRN (Reason: allergic symptoms) Qty: 30 0RF doxycycline hyclate 100 mg capsule 100 mg PO BID Qty: 14 0RF codeine-guaifenesin 10-200 mg/5 mL liquid 5 ml PO Q6H PRN (Reason: cough) Qty: 120 0RF Problem List Clinical Impression: Pneumonia, Asthma exacerbation Patient/Caregiver Discharge Instructions Print Language: Kazakh Stand Alone Forms: [facility] Award Info., Patient Portal Info Letter
--- NOTE | 2025-08-20 21:12 | EKG_ITS ---
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
--- NOTE | 2025-08-20 21:12 | XR_ITS ---
EXAMINATION: AP chest single view TECHNIQUE: AP portable semiupright chest single view August 20, 2025, 2111 hours INDICATION: Chest pain coughing beginning 2 days ago INDICATIONS: Chest pain shortness of breath coughing beginning 2 days ago FINDINGS: Fairly diffuse pneumonia in the left lung Right lung clear Normal heart size Severe osteopenia IMPRESSION: Fairly diffuse pneumonia in the left lung
[2025-08-20 21:23] VITALS: BP 139/78; PULSE 66; RESP 20; TEMP 36.6; O2SAT 98
[2025-08-20 21:30] VITALS: PULSE 65; PULSE 95; RESP 20; O2SAT 98
[2025-08-20] MEDS: ALBUTEROL RT 2.5 MG/0.5 ML NEBU 10 MG INH (21:30)
[2025-08-20] MEDS: Magnesium Sulfate 2 GM Ivpb 2 GM/50 ML BAG IV (21:35)
[2025-08-20 21:40] LABS: Basophils # (Auto) 0.1 Thou/mm3 (0.0-0.2); Basophils % (Auto) 1 % (0-2.5); Eosinophils # (Auto) 0.1 Thou/mm3 (0.0-0.5); Eosinophils % (Auto) 1 % (0-10); Hematocrit 37.4 % (36.0-46.0); Hemoglobin 12.9 g/dL (12.0-16.0); Immature Granulocytes Auto 0.05 Thou/mm3 (0.00-0.00); Lymphocytes # (Auto) 1.3 Thou/mm3 (1.0-4.8); Lymphocytes % (Auto) 14 % (10-50); Mean Corpuscular HGB Conc 34.5 g/dl (31.0-37.0); Mean Corpuscular Hemoglobin 30.4 pg (25.0-35.0); Mean Corpuscular Volume 88 fL (80-100); Monocytes # (Auto) 0.9 Thou/mm3 (0.0-0.8); Monocytes % (Auto) 10 % (0-12); Neutrophils # (Auto) 6.9 Thou/mm3 (1.8-7.7); Neutrophils % (Auto) 74 % (37-80); Nucleated Red Blood Cell # 0.00 Thou/mm3 (0.00-0.00); Nucleated Red Blood Cell % 0 /100 WBC (0); Platelet Count 243 Thou/mm3 (140-440); RDW Standard Deviation 44.7 fL (36.4-46.3); Red Blood Count 4.24 Miln/mm3 (4.00-5.20); White Blood Count 9.2 Thou/mm3 (3.6-11.0)
[2025-08-20 21:57] LABS: Anion Gap 12 (7-16); BUN/Creatinine Ratio 10 Ratio (12-20); Blood Urea Nitrogen 10 mg/dL (9-23); Calcium 9.4 mg/dL (8.3-10.6); Carbon Dioxide 20.5 mMol/L (20.0-31.0); Chloride 107 mMol/L (98-107); Creatinine (Component) 1.0 mg/dL (0.6-1.3); Glucose 84 mg/dL (74-106); Osmolality,Calculated 275 (275-295); Potassium 3.7 mMol/L (3.4-5.1); Sodium 139 mMol/L (136-145); Troponin I < 0.020 ng/mL (0.0-0.045); eGFR > 60 See Note
[2025-08-20 22:45] LABS: Lactate (Lactic Acid) 1.3 mMol/L (0.4-2.0)
--- NOTE | 2025-08-20 23:20 | ESHP_ITS ---
<Statement entered by Teddy Najera MD - 08/21/25 05:23> 70-year-old female with significant past medical history of fibromyalgia, osteoarthritis, asthma, anxiety, CAD s/p PCI [], vertebral fusion [Sep 2024], bilateral hip and knee replacement presented to the hospital with chief complaints of shortness of breath since 1 week. Reported that shortness of breath is gradual and progressive in onset, associated cough with sputum which is mucoid, pale yellowish in color. Reported that also have similar complaints. Reported she had an episode of fever but it was not documented. 3 days before the admission went to urgent care where she got nebulizations and was discharged initially on Augmentin as she is not able to tolerate it [diarrhea] was changed to amoxicillin. As the shortness of breath is getting worse presented to the hospital. Stopped smoking 20 years ago, [id number] smoking history, marijuana, denies other illicit drug abuse. Vitals at the time of admission are stable except for mildly elevated respiratory rate 26/min. Physical examination remains unremarkable at the time of my examination. Labs at the time of admission are unremarkable. Chest x-ray did not show any significant infiltrates per my read. EKG showed normal sinus rhythm with no ST and T wave changes. Tested negative for COVID, influenza A and B. Admitted in the hospital for mild asthma exacerbation in the setting of respiratory tract infection. Resumed her home medications, continue antibiotics, nebulizations. I have personally seen and examined the patient, agree with residents assessment and plan Patient plan of care was discussed with the attending physician, Dr. Aide Najera, PGY2 <Statement entered by Fabricio Noble DO - 08/21/25 00:45> Patient was seen and examined by me. After the review of the clinical data, I agree that the patient will need an admission on inpatient status for COPD exacerbation Plan of care discussed with patient who is in agreement. I Fabricio Noble DO, attest that I was physically present for tillman portions of evaluation, examined the patient, reviewed the labs and imaging, and discussed the plan of care and management with the residents team. I agree with the findings and plans documented above. Documentation for date of: 08/20/25 HPI History of Present Illness Chief complaint: Shortness of breath History of present illness: This patient is a 70-year-old female with a history of hypertension, CAD status post stents, anxiety, fibromyalgia, osteoarthritis, and hyperlipidemia who presents to [facility] ED on 08/20 for shortness of breath and trouble breathing. The patient is admitted for management of acute COPD exacerbation. The patient had been dealing with a chest cold since the start of the week. The patient initially went to an urgent care, who prescribed her Augmentin and prednisone along with an albuterol inhaler. The patient initially had generalized malaise when she took Augmentin, so this was changed to amoxicillin, to which the patient has been tolerating thus far. However, respiratory status worsened at around 0130 on 08/20 where the patient woke up with significant difficulty breathing, chills, night sweats, chest pain, and diarrhea. The patient did not have any vomiting, but she was having dry heaving. Concern, the patient came to the ED for further care. The patient does have a history of anxiety for which she takes alprazolam for. The patient does endorse a previous history of panic attacks, however notes that those attacks do not seem to be accompanied by any shortness of breath, only some chest pain and acute anxiety. Of note, the patient's brother did recently pass away and the patient has been quite distressed as result of it. Of the patient received a breathing treatment in the ED, patient was noted to be saturating in the mid 90s on room air upon examination for admission. The patient believes that she has asthma, however has never had any childhood diagnosis of asthma and hardly ever has to use an inhaler. The patient does endorse smoking for about 40 years, about 1 pack a day, so the patient possibly had COPD with an acute asthma exacerbation secondary to a mild pneumonia. The patient endorses chills, chest pain, shortness of breath, cough with white phlegm production, and diarrhea. Patient denies any fever, headache, abdominal pain, and dysuria. ED course: Initial vitals significant for blood pressure 139/78 and respiratory rate 26. Initial labs unremarkable. Chest x-ray shows fairly diffuse pneumonia in the left lung. Patient was given magnesium, methylprednisolone, and albuterol/ipratropium in ED. Past Surgical History: Spinal fusion, hip replacement, right knee replacement Current Medication(s): Pending med rec Allergies (w/ Reactions): Augmentin? (General Malaise) Family History: Noncontributory Alcohol Intake: Social drinker, occasional Tobacco/Vape Use: Patient smoked for 40 years, 1 pack a day Other Drug Use: Patient smokes marijuana daily for the past 2 years Recent Travel History: Patient denies Review of Systems Review of Systems Systems Reviewed: All systems reviewed, normal except as documented Exam Vital Signs Temp Pulse Resp BP Pulse Ox O2 Del Method O2 Flow Rate 97.8 F 95 20 139/78 H 98 Nasal Cannula 2 08/20/25 21:23 08/20/25 21:30 08/20/25 21:30 08/20/25 21:23 08/20/25 21:30 08/20/25 21:23 08/20/25 21:30 Narrative Exam Physical Exam: General: Alert, no acute distress. Skin: Warm, dry, intact. Head: Normocephalic, atraumatic. Eye: Normal conjunctiva, PERRL. Throat: Oral mucosa moist. No obvious lesions in oropharynx. Cardiovascular: Regular rate and rhythm, no murmur, +S1/S2. Respiratory: Lungs are clear to auscultation, respirations unlabored, no crackles, no wheezing. Gastrointestinal: Soft, nontender, non-distended. No guarding or rebound tenderness. Extremities: No edema, no cyanosis, no clubbing. 2+ radial pulse bilaterally, 2+ pedal pulse bilaterally. Neuro: No focal deficits observed. Conversant, moving all extremities. No overt cerebellar signs/incoordination. Psychiatric: Cooperative, appropriate affect. Results: Labs 08/20/25 21:15 08/20/25 21:15 Labs: Short CBC 08/20/25 Range/Units 21:15 WBC 9.2 (3.6-11.0) Thou/mm3 Hgb 12.9 (12.0-16.0) g/dL Hct 37.4 (36.0-46.0) % Plt Count 243 (140-440) Thou/mm3 BMP 08/20/25 21:15 Sodium 139 Potassium 3.7 Chloride 107 Carbon Dioxide 20.5 BUN 10 Creatinine 1.0 Glucose 84 Calcium 9.4 Cardiac Enzymes 08/20/25 Range/Units 21:15 Troponin I < 0.020 (0.0-0.045) ng/mL Quality Measures Quality Measures VTE prophylaxis Advance care planning discussed with:: patient and spouse Medications Home Medications and Allergies Home Medications ?Medication ?Instructions ?Recorded ?Confirmed ?Type alprazolam 0.5 mg tablet 0.5 mg PO QDAY 10/25/2010/03 History celecoxib 200 mg capsule (Celebrex) 200 mg PO QDAY 10/25/20 History citalopram 40 mg tablet (Celexa) 20 mg PO QDAY 1 10/25/20 History isosorbide mononitrate 60 mg 60 mg PO QAM 10/25/20 History tablet,extended release 24 hr lisinopril 20 mg tablet 20 mg PO QDAY 10/25/2010/25 History pravastatin 20 mg tablet 20 mg PO QDAY 10/25/2010/25 History pregabalin 200 mg capsule (Lyrica) 200 mg PO QDAY 10/0310/25/20 History trazodone 150 mg tablet 150 mg PO QDAY 10/25/2010/03 History Allergies Allergy/AdvReac Type Severity Reaction Status Date / Time Sulfa (Sulfonamide Allergy Intermediate Fever Verified 07/26/24 15:30 Antibiotics) levofloxacin Allergy Mild SWELLING, Verified 07/26/24 15:30 JOINT PAIN, STOMACH ON FIRE ciprofloxacin Allergy Unknown UNKNOWN Verified 07/26/24 15:30 REACTION Quinolones Allergy Unknown Fever Verified 07/26/24 15:30 Visit Medications Acetaminophen (Acetaminophen 325 Mg Tablet) 650 mg PO Q6H PRN PRN Reason: Fever >101.5 Stop: 09/19/25 23:05 Albuterol/Ipratropium (Albuterol/Ipratropium (Duoneb) Rt Selina 3 Ml Nebu) 3 ml INH Q2HR PRN PRN Reason: SHORTNESS OF BREATH OR WHEEZE Stop: 09/19/25 23:05 Albuterol/Ipratropium (Albuterol/Ipratropium (Duoneb) Rt Selina 3 Ml Nebu) 3 ml INH Q6HRRT ELIANA Stop: 09/20/25 00:59 Alprazolam (Alprazolam 0.25 Mg Tablet) 0.5 mg PO BID PRN PRN Reason: ANXIETY Stop: 08/25/25 23:11 Celecoxib (Celecoxib 100 Mg Capsule) 200 mg PO QDAY [facility] Stop: 09/20/25 08:59 Citalopram Hydrobromide (Citalopram 20 Mg Tablet) 40 mg PO QDAY [facility] Stop: 09/20/25 08:59 Ezetimibe (Ezetimibe 10 Mg Tablet) 10 mg PO QDAY [facility] Stop: 09/20/25 08:59 Enoxaparin Sodium (Enoxaparin Sod Inj 40 Mg/0.4 Ml Syringe) 40 mg SC QDAY ELIANA Stop: 09/04/25 08:59 Ceftriaxone Sodium/Dextrose (Rocephin/D5w 1gm Iv Premix) 1 gm in 50 mls @ 100 mls/hr IV QDAY [facility]IA[facility] Stop: 08/24/25 09:29 Azithromycin 500 mg/ Sodium (Chloride) 250 mls @ 250 mls/hr IV QDAY [facility] Stop: 08/24/25 09:59 Ondansetron HCl (Ondansetron Inj 2 Mg/Ml Inj 2 Ml) 4 mg IVP Q6H PRN; Protocol PRN Reason: NAUSEA OR VOMITING Stop: 09/19/25 23:05 Potassium Chloride (Potassium Chloride 20 Meq Tabcr) 40 meq PO X1 ONE Stop: 08/20/25 23:13 Prednisone (Prednisone 20 Mg Tablet) 40 mg PO QDAY ELIANA Stop: 08/24/25 08:59 Sodium Chloride (Sodium Chloride Rt Selina 0.9% 3 Ml Nebu) 3 ml INH PRN PRN PRN Reason: SOLN Stop: 09/19/25 21:10 Trazodone HCl (Trazodone Hcl 50 Mg Tablet) 150 mg PO HS ELIANA Stop: 09/20/25 20:59 Discontinued Medications Albuterol (Albuterol Rt 2.5 Mg/0.5 Ml Nebu) 10 mg INH X1 ONE Stop: 08/20/25 21:12 Magnesium Sulfate (Magnesium Sulfate Ivpb) 2 gm in 50 mls @ 25 mls/hr IV X1 ONE Stop: 08/20/25 23:10 Last Admin: 08/20/25 21:35 Dose: 25 mls/hr Azithromycin 500 mg/ Sodium (Chloride) 250 mls @ 250 mls/hr IV X1 ONE Stop: 08/20/25 22:51 Ceftriaxone Sodium/Dextrose (Rocephin/D5w 1gm Iv Premix) 1 gm in 50 mls @ 100 mls/hr IV X1 ONE Stop: 08/20/25 22:21 Ipratropium Artesian (Ipratropium Rt 0.5 Mg/ 2.5 Ml Nebu) 1 mg INH X1 ONE Stop: 08/20/25 21:12 Methylprednisolone Sodium Succinate (Methylprednisolone Sod 500 Mg/8 Ml Vial) 125 mg IV X1 ONE Stop: 08/20/25 21:12 Methylprednisolone Sodium Succinate (Methylprednisolone Sod Succ 62.5 Mg/Ml 2ml Vial) 125 mg IVP X1 ONE Stop: 08/20/25 21:50 Assessment & Plan Plan This patient is a 70-year-old female with a history of hypertension, CAD status post stents, anxiety, fibromyalgia, osteoarthritis, and hyperlipidemia who presents to [facility] ED on 08/20 for shortness of breath and trouble breathing. The patient is admitted for management of acute asthma/COPD exacerbation. #Acute asthma exacerbation versus #Acute COPD exacerbation #History of smoking Patient noted to have significant difficulty breathing started at 0130 on 08/20, although no desaturations identified. Patient was noted to have significant increased respiratory rate and increased work of breathing as per ED note however. The patient had significant improvement in her respiratory status to where her wheezing has almost completely resolved on admission. Patient states that this does not feel like a panic attack for her as she usually does not become dyspneic. Additionally, patient states that she has been previously diagnosed with asthma, however she has not needed to use her inhaler much of her life. Patient does have a [id number] history of smoking. Possibly secondary to viral infection, sparse left lobe pneumonia, and/or panic attack given the the patient's brother recently passed. Diagnostic: Chest x-ray on 08/20 shows fairly diffuse pneumonia in left lung Patient noted to have significant wheezing upon entry into ED which improved with breathing treatments Procalcitonin ordered, pending Treatment: DuoNebs every 6 hours with additional DuoNebs every 2 hours as needed Ceftriaxone 1 g daily, consider stopping or shortening course if procalcitonin is within normal limits Azithromycin 500 mg daily Prednisone 40 mg daily followed by prednisone 20 mg daily for taper #Anxiety #History of fibromyalgia #History of osteoarthritis Patient does have history of anxiety and fibromyalgia. When the patient has anxiety attacks, she becomes acutely anxious and does have some chest pain. The patient has Xanax at home for management of this as well as trazodone. Patient also has a history of fibromyalgia and sees outpatient pain clinic for management of this condition. The patient also takes Celebrex for her osteoarthritis. Treatment: Resumed the patient's home alprazolam 0.5 mg twice daily as needed for anxiety Resumed the patient's home trazodone 150 mg nightly Resumed patient's home Celebrex 200 mg daily Resumed patient's home citalopram 40 mg daily #CAD status post stents #History of hyperlipidemia #History of hypertension Patient reports a history of CAD status post stents with hyperlipidemia and hypertension. Patient does not seem to have any home antihypertensives. Patient does take ezetimibe 10 mg daily for management of her hyperlipidemia. Treatment: Resumed the patient's home ezetimibe 10 mg daily Consider antihypertensive if patient is consistently hypertensive throughout hospital stay Cardiac diet Keep potassium above 4 and magnesium above 2 DVT Prophylaxis: Lovenox GI Prophylaxis: N/A Bowel: Sennokot S Diet: Cardiac Marquez: N/A Lines: Peripheral IV Antibiotics: Ceftriaxone and azithromycin Code Status: FULL Reason for Hospitalization: Acute COPD exacerbation Other Barriers to Discharge: Blood cultures Patient plan of care was discussed with the senior resident Dr. Najera (PGY-2) and attending physician Dr. Aide Case, PGY1
[2025-08-20 23:45] LABS: Procalcitonin < 0.04 ng/ml (0.0-0.49)
[2025-08-21] VITALS (9 sets, daily range): BP systolic 115–161; BP diastolic 68–99; PULSE 70–82; RESP 17–99; TEMP 36.1–37.1; O2SAT 94–100
[2025-08-21] MEDS: MethylPREDNISolone SOD SUCC 62.5 MG/ML 2ML VIAL 125 MG IVP (00:33)
[2025-08-21] MEDS: AZITHROMYCIN INJ 500 MG in SODIUM CHLORIDE 0.9% 250 ML 250 ML 250 MG IV (00:33)
[2025-08-21] MEDS: cefTRIAXone/D5w 1gm IV premix 1 GM/50 ML BAG IV (00:34)
[2025-08-21] MEDS: ALBUTEROL/IPRATROPIUM (Duoneb) RT SOL 3 ML NEBU INH (00:48)
[2025-08-21] MEDS: IPRATROPIUM RT 0.5 MG/ 2.5 ML NEBU 1 MG INH (01:53)
[2025-08-21] MEDS: LEVALBUTEROL RT 1.25 MG/0.5 ML NEBU INH (07:34)
[2025-08-21] MEDS: IPRATROPIUM RT 0.5 MG/ 2.5 ML NEBU INH (07:34)
[2025-08-21 07:48] LABS: Basophils # (Auto) 0.0 Thou/mm3 (0.0-0.2); Basophils % (Auto) 1 % (0-2.5); Eosinophils # (Auto) 0.0 Thou/mm3 (0.0-0.5); Eosinophils % (Auto) 0 % (0-10); Hematocrit 37.7 % (36.0-46.0); Hemoglobin 12.8 g/dL (12.0-16.0); Immature Granulocytes Auto 0.04 Thou/mm3 (0.00-0.00); Lymphocytes # (Auto) 0.5 Thou/mm3 (1.0-4.8); Lymphocytes % (Auto) 8 % (10-50); Mean Corpuscular HGB Conc 34.0 g/dl (31.0-37.0); Mean Corpuscular Hemoglobin 30.1 pg (25.0-35.0); Mean Corpuscular Volume 89 fL (80-100); Monocytes # (Auto) 0.1 Thou/mm3 (0.0-0.8); Monocytes % (Auto) 2 % (0-12); Neutrophils # (Auto) 5.8 Thou/mm3 (1.8-7.7); Neutrophils % (Auto) 90 % (37-80); Nucleated Red Blood Cell # 0.00 Thou/mm3 (0.00-0.00); Nucleated Red Blood Cell % 0 /100 WBC (0); Platelet Count 263 Thou/mm3 (140-440); RDW Standard Deviation 45.1 fL (36.4-46.3); Red Blood Count 4.25 Miln/mm3 (4.00-5.20); White Blood Count 6.5 Thou/mm3 (3.6-11.0)
[2025-08-21 08:07] LABS: Albumin, Serum 4.1 gm/dL (3.4-4.8); Anion Gap 9 (7-16); BUN/Creatinine Ratio 10 Ratio (12-20); Blood Urea Nitrogen 10 mg/dL (9-23); Calcium 9.5 mg/dL (8.3-10.6); Calcium (Corrected) 9.5 mg/dL (8.5-10.1); Carbon Dioxide 23.7 mMol/L (20.0-31.0); Chloride 106 mMol/L (98-107); Creatinine (Component) 1.0 mg/dL (0.6-1.3); Glucose 116 mg/dL (74-106); Magnesium 2.3 mg/dL (1.6-2.6); Osmolality,Calculated 277 (275-295); Phosphorous 3.7 mg/dL (2.4-5.1); Potassium 4.0 mMol/L (3.4-5.1); Sodium 139 mMol/L (136-145); eGFR > 60 See Note
[2025-08-21] MEDS: ENOXAPARIN SOD INJ 40 MG/0.4 ML SYRINGE SC (08:25)
[2025-08-21] MEDS: EZETIMIBE 10 MG TABLET PO (08:26)
--- NOTE | 2025-08-21 12:34 | PC.SS ---
Porter Marina (JUDI) Tanvi met with the patient and at bedside to complete an initial assessment and discuss a discharge plan. Patient is alert and oriented to person, place, time, and situation, and provided verbal consent to participate in the assessment. The patient was admitted for acute COPD and asthma exacerbation. Patient is Bri Galicia, 70 y/o Nepali-speaking female residing with at [address] [place] [address]. Patient designated her , Romeo Galicia, , as her surrogate medical decision maker. Patient reports that at baseline she is independent, no oxygen or dialysis. The patient's pharmacy is [facility]. Patient's PCP is Dr. Caldera. Patient's d/c plan is home, and the will provide transportation. SS is to remain available as needed. Surrogate medical decision maker: , Romeo, Discharge plan: Home
--- NOTE | 2025-08-21 13:21 | ESDS_ITS ---
<Statement entered by Alan Baldwin MD - 08/21/25 13:22> Note reviewed and agree with care plan as documented. Please refer to the note below for further details. Plan discussed with attending physician Dr. Adeola Baldwin MD PGY-2 Internal Medicine Planned Discharge Date 08/21/25 DS: Providers Provider Date of admission: 08/20/25 23:24 Primary care physician: Irasema Caldera MD Admitting Provider: Fabricio Noble DO Attending Provider on Admission: Fabricio Noble DO Attending Provider on DC: Tanmay Kim MD Discharging Provider: Tanmay Kim MD Anticipated date of discharge: 08/21/25 DS: Diagnosis Problem List Completed Was Problem List Reviewed/Reconciled?: Yes Hospital Course Hospital Course Hospital course: Summary This patient is a 70-year-old female with a history of hypertension, CAD status post stents, anxiety, fibromyalgia, osteoarthritis, and hyperlipidemia who presents to [facility] ED on 08/20 for shortness of breath and trouble breathing. The patient was admitted for management of an acute ashtma exacerbation. She had a cold earlier in the week and was initially treated at urgent care with Augmentin, prednisone, and albuterol; Augmentin was changed to amoxicillin due to side effects of diarhrea . On 08/20 at ~0130, she developed worsening shortness of breath with chills, night sweats, chest pain, diarrhea, and dry heaving, prompting ED presentation. In the ED, she received breathing treatments and was saturating in the mid-90s on room air. She has a [id number] smoking history and likely underlying COPD, with possible acute exacerbation and mild pneumonia. She also reports anxiety and recent bereavement ( brother last week from [place]). ED vitals significant were stable. Initial labs unremarkable. Chest x-ray shows fairly diffuse pneumonia in the left lung. Patient was given magnesium, methylprednisolone, and albuterol/ipratropium in ED. Started ceftriaxone and was on azithromycin, breathing treatment and resume home medication. Upon evaluation patient was saturating well on room air lung sounds clear to auscultation with mild wheezing on the right side. The patient mild acute exacerbation, and her symptoms are likely related to anxiety associated with recent bereavement and recemt sock contact with COVID exposure. She expressed a preference to return home to be with family and mourn the of her brother, surrounded by loved ones. Rapid COVID test negative, influenza A and B negative. Throughout the hospital course patient other problems were managed and her condition improved remarkably with progression of hospital course. Further plan to discharge home to self care with the following instructions. Discharge recommendation: - Follow up with PCP in 1-2 weeks, If you don't have a PCP, you can make an appointment at the [facility]: - Prescribe new Ventolin inhaler and Trelegy ellipta - Prescribe new Cephalexin 550mg three times a day and doxycline 100mg twice daily - Stop lisinopril 20mg - Continue rest of medications as previously prescribed - Return to the ED or call EMS is symptoms return and/or worsen Hospital Diagnoses: #Acute asthma exacerbation versus Acute COPD exacerbation #History of smoking #Anxiety #Fibromyalgia #Osteoarthritis #CAD status post stents #History of hyperlipidemia #History of hypertension Patient assessed under supervision of attending physician and senior resident Dr. Baldwin PGY-2 Nina Pabon MD PGY-1, Internal Medicine Please note: this document was transcribed using voice recognition technology; minor inaccuracies may be present. Time Spent with Patient Time attestation: Total time spent providing and/or coordinating discharge services: Time spent: Greater than 30 minutes Exam Vital Signs Temp Pulse Resp BP Pulse Ox O2 Del Method O2 Flow Rate 97.2 F 77 18 161/99 H 97 Room Air 2 08/21/25 08:00 08/21/25 08:00 08/21/25 08:00 08/21/25 08:00 08/21/25 08:00 08/21/25 08:00 08/20/25 21:30 Narrative Exam General: Alert, no acute distress. Skin: Warm, dry, intact. Head: Normocephalic, atraumatic. Eye: Normal conjunctiva, PERRL. Throat: Oral mucosa moist. No obvious lesions in oropharynx. Cardiovascular: Regular rate and rhythm, no murmur, +S1/S2. Respiratory: Lungs are clear to auscultation, respirations unlabored, no crackles, mild wheezing of right base Gastrointestinal: Soft, nontender, non-distended. No guarding or rebound tenderness. Extremities: No edema, no cyanosis, no clubbing. 2+ radial pulse bilaterally, 2+ pedal pulse bilaterally. Neuro: No focal deficits observed. Conversant, moving all extremities. No overt cerebellar signs/incoordination. Psychiatric: Cooperative, appropriate affect. Discharge Plan Plan Patient Disposition: HOME (Self Care) Patient condition on transfer: Stable Care Plan Goals: - Follow up with PCP in 1-2 weeks, If you don't have a PCP, you can make an appointment at the [facility]: - Prescribe new Ventolin inhaler and Trelegy ellipta - Prescribe new Cephalexin 550mg three times a day and doxycline 100mg twice daily - Stop lisinopril 20mg - Continue rest of medications as previously prescribed - Return to the ED or call EMS is symptoms return and/or worsen Prescriptions/Referrals Prescriptions/Med Rec: New cephalexin 500 mg capsule 500 mg PO TID 7 Days Qty: 21 0RF doxycycline hyclate 100 mg tablet 100 mg PO BID 7 Days Qty: 14 0RF Trelegy Ellipta 100-62.5-25 mcg blister with device 1 inh inhalation QDAY 14 Days Qty: 60 0RF albuterol sulfate [Ventolin HFA] 90 mcg/actuation HFA aerosol inhaler 1 inh inhalation QID PRN (Reason: shortness of breath or wheezing) 30 Days Qty: 8.5 0RF prednisone 10 mg tablet See Taper PO QDAY 12 Days Qty: 12 0RF Taper: Prednisone Taper 30 mg DAILY for 2 Days and 0 Hour 20 mg DAILY for 2 Days and 0 Hour 10 mg DAILY for 2 Days and 0 Hour 5 mg DAILY for 2 Days and 0 Hour Continued celecoxib [Celebrex] 200 mg Capsule 200 mg PO QDAY citalopram [Celexa] 40 mg Tablet 40 mg PO QDAY alprazolam 0.5 mg Tablet 0.5 mg PO BID trazodone 150 mg Tablet 150 mg PO QDAY pravastatin 20 mg Tablet 20 mg PO QDAY pregabalin [Lyrica] 200 mg Capsule 200 mg PO QDAY loratadine [Claritin] 10 mg tablet 10 mg PO QDAY docusate sodium 100 mg capsule 100 mg PO BID hydrocodone-acetaminophen 10-325 mg tablet 1 tab PO TID PRN (Reason: pain) metaxalone 800 mg tablet 800 mg PO BID PRN (Reason: muscle pain) Discontinued lisinopril 20 mg Tablet 20 mg PO QDAY Referrals: Irasema Caldera MD [Primary Care Provider, Nephrology] Patient/Caregiver Discharge Instructions Discharge Activity: activity as tolerated Education Materials: Asthma Action Plan, Asthma Medicine, Asthma Trigger Checklist, Asthma and Exercise Print Language: Bulgarian Stand Alone Forms: [facility] Award Info., Patient Portal Info Letter Discharge Order Discharge Orders: Discharge (Routine); Ordered 08/21/25 Ordered By: aTnmay Mir Quality Discharge Quality Measures VTE prophylaxis MD Attestestation MD Attestation I have examined the patient, reviewed labs and imaging findings, discussed the case with the resident(s), and reviewed entered orders. I agree with the plan of care as outlined in this note. Time Spent: [address] Adeola MD
--- NOTE | 2025-08-21 13:26 | PD.RESDS ---
Planned Discharge Date 08/21/25 DS: Providers Provider Date of admission: 08/20/25 23:24 Primary care physician: Irasema Caldera MD Admitting Provider: Fabricio Noble DO Attending Provider on Admission: Fabricio Noble DO Attending Provider on DC: Nina Pabon MD Discharging Provider: Nina Pabon MD Hospital Course Hospital Course Hospital course: This patient is a 70-year-old female with a history of hypertension, CAD status post stents, anxiety, fibromyalgia, osteoarthritis, and hyperlipidemia who presents to [facility] ED on 08/20 for shortness of breath and trouble breathing. The patient is admitted for management of acute COPD exacerbation. The patient had been dealing with a chest cold since the start of the week. The patient initially went to an urgent care, who prescribed her Augmentin and prednisone along with an albuterol inhaler. The patient initially had generalized malaise when she took Augmentin, so this was changed to amoxicillin, to which the patient has been tolerating thus far. However, respiratory status worsened at around 0130 on 08/20 where the patient woke up with significant difficulty breathing, chills, night sweats, chest pain, and diarrhea. The patient did not have any vomiting, but she was having dry heaving. Concern, the patient came to the ED for further care. The patient does have a history of anxiety for which she takes alprazolam for. The patient does endorse a previous history of panic attacks, however notes that those attacks do not seem to be accompanied by any shortness of breath, only some chest pain and acute anxiety. Of note, the patient's brother did recently pass away and the patient has been quite distressed as result of it. Of the patient received a breathing treatment in the ED, patient was noted to be saturating in the mid 90s on room air upon examination for admission. The patient believes that she has asthma, however has never had any childhood diagnosis of asthma and hardly ever has to use an inhaler. The patient does endorse smoking for about 40 years, about 1 pack a day, so the patient possibly had COPD with an acute asthma exacerbation secondary to a mild pneumonia. The patient endorses chills, chest pain, shortness of breath, cough with white phlegm production, and diarrhea. Patient denies any fever, headache, abdominal pain, and dysuria. ED course: Initial vitals significant for blood pressure 139/78 and respiratory rate 26. Initial labs unremarkable. Chest x-ray shows fairly diffuse pneumonia in the left lung. Patient was given magnesium, methylprednisolone, and albuterol/ipratropium in ED. Past Surgical History: Spinal fusion, hip replacement, right knee replacement Current Medication(s): Pending med rec Allergies (w/ Reactions): Augmentin? (General Malaise) Family History: Noncontributory Alcohol Intake: Social drinker, occasional Tobacco/Vape Use: Patient smoked for 40 years, 1 pack a day Other Drug Use: Patient smokes marijuana daily for the past 2 years Recent Travel History: Patient denies Time Spent with Patient Time attestation: Total time spent providing and/or coordinating discharge services: Exam Vital Signs Temp Pulse Resp BP Pulse Ox O2 Del Method O2 Flow Rate 97.2 F 77 18 161/99 H 97 Room Air 2 08/21/25 08:00 08/21/25 08:00 08/21/25 08:00 08/21/25 08:00 08/21/25 08:00 08/21/25 08:00 08/20/25 21:30 Discharge Plan Plan Patient Disposition: HOME (Self Care) Patient condition on transfer: Stable Care Plan Goals: - Follow up with PCP in 1-2 weeks, If you don't have a PCP, you can make an appointment at the [facility]: - Prescribe new Ventolin inhaler and Trelegy ellipta - Prescribe new Cephalexin 550mg three times a day and doxycline 100mg twice daily - Stop lisinopril 20mg - Continue rest of medications as previously prescribed - Return to the ED or call EMS is symptoms return and/or worsen Prescriptions/Referrals Prescriptions/Med Rec: New cephalexin 500 mg capsule 500 mg PO TID 7 Days Qty: 21 0RF doxycycline hyclate 100 mg tablet 100 mg PO BID 7 Days Qty: 14 0RF Trelegy Ellipta 100-62.5-25 mcg blister with device 1 inh inhalation QDAY 14 Days Qty: 60 0RF albuterol sulfate [Ventolin HFA] 90 mcg/actuation HFA aerosol inhaler 1 inh inhalation QID PRN (Reason: shortness of breath or wheezing) 30 Days Qty: 8.5 0RF Continued celecoxib [Celebrex] 200 mg Capsule 200 mg PO QDAY citalopram [Celexa] 40 mg Tablet 40 mg PO QDAY alprazolam 0.5 mg Tablet 0.5 mg PO BID trazodone 150 mg Tablet 150 mg PO QDAY pravastatin 20 mg Tablet 20 mg PO QDAY pregabalin [Lyrica] 200 mg Capsule 200 mg PO QDAY loratadine [Claritin] 10 mg tablet 10 mg PO QDAY docusate sodium 100 mg capsule 100 mg PO BID hydrocodone-acetaminophen 10-325 mg tablet 1 tab PO TID PRN (Reason: pain) metaxalone 800 mg tablet 800 mg PO BID PRN (Reason: muscle pain) Discontinued lisinopril 20 mg Tablet 20 mg PO QDAY Referrals: Irasema Caldera MD [Primary Care Provider, Nephrology] Patient/Caregiver Discharge Instructions Discharge Activity: activity as tolerated Education Materials: Asthma Action Plan, Asthma Medicine, Asthma Trigger Checklist, Asthma and Exercise Print Language: Polish Stand Alone Forms: [facility] Award Info., Patient Portal Info Letter Discharge Order Discharge Orders: Discharge (Routine); Ordered 08/21/25 Ordered By: Teo Escobedo
--- NOTE | 2025-08-21 13:52 | PC.NURSE ---
Alert and oriented x3, resp 20 even and unlabored, this nurse informed pt that we needed to do a walk test to monitor her O2 SAT and pt stated that she was ready and [place], pt stated that she did not feel SOB at the beginning of test and has, O2 SAT was 98-100% on RA and heart rate was 85, no c/o pain at this time during walking pt O2 Sat maintained above 96% on room air and did not go any lower heart rate went up to 110, however pt did not c/o SOB and was able to talk to me and walk and perform each task with no c/o SOB, at the end pt O2 SAT went up to 98% room air and heart rate back down to 87, this nurse contacted dr CARRIZALES and informed him he stated that she is okay to discharge.
[2025-08-21 14:15] LABS: Cocci Serology, IgM Negative (Negative)
--- NOTE | 2025-08-21 17:48 | PC.NURSE ---
1558 this nurse gave discharge instructions, pt voices understanding at bedside with pt iv removed, pt alert and oriented x4, pt able to communicate needs well and make needs known, pt voices no complaints of pain at this time, pt signed discharge paper work and, voices understanding of teaching and provided a copy of her paper work
[2025-08-22 14:10] LABS: Cocci Serology, IgG Negative (Negative)
== END 2025-08-21 15:58 | disposition home or self-care (01) ==
LOC: SERX 23:11 → S3SX 08-21 10:04 → SERHOLD 08-22 06:29 → S3NX 08-22 06:30 → S3SX 08-22 06:30
PROVIDERS: Admitting Provider Internal Medicine; Emergency Provider Emergency Medicine; PCP Internal Medicine; Visit Provider Internal Medicine
DX: J44.1 Chronic obstructive pulmonary disease with (acute) exacerbation (principal); J45.901 Unspecified asthma with (acute) exacerbation; F41.9 Anxiety disorder, unspecified; M79.7 Fibromyalgia; M19.90 Unspecified osteoarthritis, unspecified site; E78.5 Hyperlipidemia, unspecified; I25.10 Atherosclerotic heart disease of native coronary artery without angina pectoris; I10 Essential (primary) hypertension; Z95.5 Presence of coronary angioplasty implant and graft
CPT/HCPCS: 36415; 71045; 80048; 80069; 83605; 83735; 84145; 84484; 85025; 86331; 86635; 87040; 87081; 87502; 87634; 87635; 93005; 94640; 94644; 96365; 96366; 96372; 96375; 99285; A9270; G0378; J0456; J0696; J1650; J2919; J3475; J7050; J7512; J7611; J7612